=== PATIENT | male | born 1950 | race Two or more races ===

== ENCOUNTER 2017-04-13 00:13 | Emergency (ER) | payer MEDICARE ==
[~2017-04-13] VITALS: Ht 167.6 cm; Wt 78.6 kg
[2017-04-13 00:19] VITALS: BP 148/91
== END 2017-04-13 01:00 | disposition home or self-care (01) ==
LOC: ED 00:46
DX: S61.216D Laceration without foreign body of right little finger without damage to nail, subsequent encounter (principal); X58.XXXD Exposure to other specified factors, subsequent encounter; Z87.891 Personal history of nicotine dependence
CPT/HCPCS: 99281